=== PATIENT | female | born 1980 | race Caucasian/White ===

== ENCOUNTER → 2017-01-31 | Day surgery (SDC) | payer OTHER ==
[~2017-01-31] VITALS: Ht 160 cm; Wt 54.4 kg
[~2017-01-31] MED LIST: LO LOESTRIN FE1 EACH PO
--- NOTE | 2017-01-31 14:43 | Operative Report ---
Operative/Inv Procedure Report Surgery Date: 01/31/17 Name of Procedure: Bilateral labia minora reduction Pre-Operative Diagnosis: Excess labia minora symptomatic Post-Operative Diagnosis: Same Estimated Blood Loss: scant Surgeon/Intermission Coordinator: RENA RICE MD Anesthesia: laryngeal mask airway Operative/Procedure Note Note: Patient was counseled extensively regards to the procedure the alternatives the risks and expected outcomes as relates to request for surgical intervention to treat symptomatic labia minora hypertrophy. We talked about the risks which included but were not limited to infection bleeding pain open wound less of consortium scarring causing difficulty with intercourse. The patient signed informed consent. She was taken to the operative placed supine on the operating table. Venodyne boots are placed and then anesthesia and antibiotics was given. She was put in stirrups after being appropriately padded and positioned. As to plan out the incisions and tension was checked multiple times. Local anesthesia was then injected. There was prepped draped. Straight conical baby clamps were placed on the little just below the marked lines. Full-thickness incisions were placed. Wounds made hemostatic with Dawson tip Bovie gently. Multiple layer closure 5-0 Monocryl as was performed. Similar procedure done on the other side. End dictation
== END ==
LOC: STS 01:41
DX: N90.60 Unspecified hypertrophy of vulva (principal); N94.89 Other specified conditions associated with female genital organs and menstrual cycle
CPT/HCPCS: 81025; J0131; J0690; J1100; J2250; J2405